=== PATIENT | female | born 1950 | race Caucasian/White ===

== ENCOUNTER 2023-04-08 15:29 | Inpatient (IN) | payer OTHER ==
[2023-04-08] MEDS ORDERED: ACETAMINOPHEN 325 MG TABLET (FP) PO ONE (16:05)
[2023-04-08] MEDS ORDERED: ACETAMINOPHEN 325 MG TABLET (FP) ONE (16:39)
[2023-04-08 16:49] LABS: BASO % 0.4 % (0-2.0); EOS % 0.5 % (0-4.5); HEMATOCRIT 34.6 % (32.4-45.2); HEMOGLOBIN 11.7 GM/dL (10.7-15.3); LYMPH % 24.1 % (8-40); MCH 30.1 pg (25.7-33.7); MCHC 33.7 g/dl (32.0-36.0); MEAN CELL VOLUME 89.4 fl (80-96); MEAN PLT VOLUME 8.8 fl (7.5-11.1); MONO % 8.3 % (3.8-10.2); NEUT % 66.7 % (42.8-82.8); PLATELET COUNT 331 10^3/uL (134-434); RBC 3.87 M/mm3 (3.60-5.2); RDW 13.8 % (11.6-15.6); WHITE BLOOD COUNT 8.8 K/mm3 (4.0-10.0)
[2023-04-08 17:06] LABS: POTASSIUM 4.1 mmol/L (3.5-5.1)
[2023-04-08 17:08] LABS: ALBUMIN 3.3 g/dl (3.4-5.0); BLOOD UREA NITROGEN 13.4 mg/dL (7-18); CALCIUM 8.7 mg/dL (8.5-10.1)
[2023-04-08 17:12] LABS: CREATININE 0.8 mg/dL (0.55-1.3)
[2023-04-08 17:13] LABS: BILIRUBIN,TOTAL 0.2 mg/dL (0.2-1); TOT PROT 6.5 g/dl (6.4-8.2)
[2023-04-08 17:41] LABS: EPI CELLS 29 /uL (0-25.1); HYALINE CASTS 1 /uL (0-3.1); PH,URINE 7.5 (5.0-8.0); URINE APPEARANCE CLEAR; URINE BACTERIA 1144 /uL (0-1359); URINE BILIRUBIN NEGATIVE (NEGATIVE); URINE COLOR YELLOW; URINE GLUCOSE (UA) NEGATIVE (NEGATIVE); URINE KETONE NEGATIVE (NEGATIVE); URINE LEUK ESTERASE 2+ (NEGATIVE); URINE NITRITE NEGATIVE (NEGATIVE); URINE PROTEIN NEGATIVE (NEGATIVE); URINE RBC 38 /uL (0-23.9); URINE WBC 453 /uL (0-25.8)
[2023-04-08] MEDS ORDERED: CEFTRIAXONE 1 GM/50 ML BAG ONE (18:21)
[2023-04-09 00:03] VITALS: BMI 25.0
[2023-04-09] MEDS ORDERED: RIVAROXABAN 15 MG TABLET PO SCH (01:10)
[2023-04-09 07:29] VITALS: RESP 18
[2023-04-09] MEDS: SERTRALINE HCL 25 MG TABLET (FP) PO SCH ×2 (07:44→09:43)
[2023-04-09] MEDS: ATORVASTATIN CA 10 MG TABLET (FP) PO SCH ×2 (07:44→21:38)
[2023-04-09] MEDS: DONEPEZIL HCL 5 MG TABLET (FP) PO SCH ×2 (07:44→21:38)
[2023-04-09] MEDS: CEFTRIAXONE 1 GM in DEXTROSE 5%-WATER - 50 ML IVPB SCH (09:43)
[2023-04-09] MEDS ORDERED: ENOXAPARIN NA (PORCINE) 40 MG/0.4 ML DISP.SYRIN SQ SCH (10:00)
[2023-04-09 10:32] LABS: HEMOGLOBIN 12.6 GM/dL (10.7-15.3); MCH 30.1 pg (25.7-33.7); MEAN CELL VOLUME 88.5 fl (80-96); MEAN PLT VOLUME 8.8 fl (7.5-11.1); PLATELET COUNT 293 10^3/uL (134-434); RBC 4.18 M/mm3 (3.60-5.2); WHITE BLOOD COUNT 6.1 K/mm3 (4.0-10.0)
[2023-04-09 10:50] LABS: POTASSIUM 4.4 mmol/L (3.5-5.1)
[2023-04-09 10:54] LABS: ALBUMIN 3.2 g/dl (3.4-5.0); BLOOD UREA NITROGEN 8.9 mg/dL (7-18); CALCIUM 8.9 mg/dL (8.5-10.1); MAGNESIUM 2.3 mg/dL (1.8-2.4)
[2023-04-09 10:56] LABS: CREATININE 0.5 mg/dL (0.55-1.3); PHOSPHOROUS 3.5 mg/dL (2.5-4.9)
[2023-04-09 10:57] LABS: BILIRUBIN,TOTAL 0.3 mg/dL (0.2-1); TOT PROT 6.4 g/dl (6.4-8.2)
[2023-04-10] MEDS: CEFTRIAXONE 1 GM in DEXTROSE 5%-WATER - 50 ML IVPB SCH (10:40)
[2023-04-10] MEDS: SERTRALINE HCL 25 MG TABLET (FP) PO SCH (10:41)
[2023-04-10] MEDS ORDERED: POLYETHYLENE GLYCOL (HEALTHYLAX) 3350 17 GM PACKET PO PRN (20:14)
[2023-04-10] MEDS: ATORVASTATIN CA 10 MG TABLET (FP) PO SCH (21:24)
[2023-04-10] MEDS: CEFUROXIME AXETIL 500 MG TABLET PO SCH (21:24)
[2023-04-10] MEDS: DONEPEZIL HCL 5 MG TABLET (FP) PO SCH (21:25)
[2023-04-10] MEDS ORDERED: CEPHALEXIN MONOHYDRATE 500 MG CAPSULE (UD) PO SCH (22:00)
[2023-04-11] MEDS: SERTRALINE HCL 25 MG TABLET (FP) PO SCH (10:17)
[2023-04-11] MEDS: CEFUROXIME AXETIL 500 MG TABLET PO SCH ×2 (10:17→21:38)
[2023-04-11] MEDS: ATORVASTATIN CA 10 MG TABLET (FP) PO SCH (21:38)
[2023-04-11] MEDS: DONEPEZIL HCL 5 MG TABLET (FP) PO SCH (21:38)
[2023-04-12] MEDS: CEFUROXIME AXETIL 500 MG TABLET PO SCH (09:13)
[2023-04-12] MEDS: SERTRALINE HCL 25 MG TABLET (FP) PO SCH (09:13)
[2023-04-12 14:58] VITALS: BP 114/63; PULSE 92; TEMP 98.6
== END 2023-04-12 17:28 | DRG 690 ==
LOC: JER 15:29 → JERBED 21:19 → J5S 22:47 → OBSVTOIN 04-09 10:09
PROVIDERS: ADMIT Internal Medicine; ATTEND Family Medicine
DX: N39.0 Urinary tract infection, site not specified (principal); Z85.3 Personal history of malignant neoplasm of breast; G30.9 Alzheimer's disease, unspecified; F02.80 Dementia in other diseases classified elsewhere, unspecified severity, without behavioral disturbance, psychotic disturbance, mood disturbance, and anxiety; E78.5 Hyperlipidemia, unspecified; D32.0 Benign neoplasm of cerebral meninges; I48.91 Unspecified atrial fibrillation
CPT/HCPCS: 36415; 70450-TC; 70486-TC; 71045-TC-FY; 72125-TC; 73200-TC-RT; 80053; 81003; 82550; 83735; 84100; 84484; 85025; 85027; 87086; 87186; 87635; 93005; 93010; 97116-GP; 97162-GP; 99285-25; G0378